=== PATIENT | male | born 1990 | race Two or more races ===

== ENCOUNTER 2023-05-08 14:12 | Emergency (ER) | payer OTHER ==
[~2023-05-08] VITALS: Ht 180.3 cm; Wt 87.1 kg
[2023-05-08 14:24] LABS: BASOPHILS 0.3 % (0-2); HEMATOCRIT 43.9 % (35.0-50.0); HEMOGLOBIN 14.8 g/dL (12.0-18.0); LYMPHOCYTES 20.7 % (24-44); MCH 29.1 (27-36); MCHC 33.8 g/dl (30-36); MCV 86.2 fl (81-99); MONOCYTES 5.2 % (0-12); NEUTROPHILS 72.8 % (39-80); PLATELET COUNT 228 K/uL (140-440); RBC 5.09 M/ul (4.3-5.7); RDW 13.9 (10.5-15.0)
[2023-05-08 14:51] LABS: ACETAMINOPHEN 0 ug/mL (10-30); ALBUMIN 3.7 g/dL (3.4-5.0); ALBUMIN/GLOBULIN RATIO 1.16 (1.1-2.4); ALCOHOL, MEDICAL <3 ng/dL (<3); ALKALINE PHOSPHATASE 74 U/L (46-116); ALT (SGPT) 49 U/L (14-59); ANION GAP 10.9 (7-21); AST (SGOT) 24 U/L (15-37); BILIRUBIN, TOTAL 0.2 ng/dL (0.2-1.0); BUN/CREATININE RATIO 11.42 (6.0-28.6); CALCIUM 8.8 mg/dL (8.5-10.1); CARBON DIOXIDE 30 mmol/L (21-32); CHLORIDE 101 mmol/L (98-107); CREATININE, SERUM 1.05 mg/dL (0.70-1.30); GLOMERULAR FILTRATION RATE,EST 96 mL/min (>60); POTASSIUM 3.9 mmol/L (3.5-5.1); PROTEIN, TOTAL 6.9 g/dL (6.4-8.2); SALICYLATE 1.2 mg/dL (2.8-20.0); TSH, 3RD GENERATION 1.203 uIU/mL (0.358-3.740); UREA NITROGEN 12 mg/dL (7-18)
[2023-05-08 15:38] LABS: AMPHETAMINES, URINE NEGATIVE (NEGATIVE); BARBITURATES, URINE NEGATIVE (NEGATIVE); BENZODIAZEPINE, URINE NEGATIVE (NEGATIVE); BUPRENORPHINE, URINE NEGATIVE (NEGATIVE); CANNABINOID, URINE NEGATIVE (NEGATIVE); COCAINE, URINE NEGATIVE (NEGATIVE); ECSTASY, URINE NEGATIVE (NEGATIVE); FENTANYL, URINE NEGATIVE (NEGATIVE); METHADONE, URINE NEGATIVE (NEGATIVE); OPIATES, URINE NEGATIVE (NEGATIVE); OXYCODONE, URINE NEGATIVE (NEGATIVE); PHENCYCLIDINE, URINE NEGATIVE (NEGATIVE)
[2023-05-08 16:18] VITALS: BP 112/73
== END 2023-05-08 16:10 | disposition other institution, planned readmission (95) ==
LOC: ED 14:12
PROVIDERS: Emergency Medicine
DX: T14.91XA Suicide attempt, initial encounter (principal); X83.8XXA Intentional self-harm by other specified means, initial encounter
CPT/HCPCS: 36415; 70498; 72125; 80053; 80307; 84443; 85025; 99285-25; G0480; J7030; Q9967